=== PATIENT | female | born 1985 | race Hispanic/Latino ===

== ENCOUNTER 2019-12-08 14:00 | Outpatient (AMB) | payer MEDICAID, SELFPAY ==
[2019-12-08 13:50] VITALS: BMI 25.6
[2019-12-08 14:00] VITALS: BMI 25.6
--- NOTE | 2019-12-08 14:00 | CWCCLINC_ITS ---
Review of Systems Review of Systems ROS Unobtainable: All systems reviewed & no additional complaints except as documented Const Constitutional: Reports body aches GI Gastrointestinal: Reports constipation and Reports nausea Genitourinary: Reports pelvic pain Musc Musculoskeletal: Reports arthralgias Skin/Breast Skin/Breast: Reports bleeding lesions and Reports non-healing lesions Exam Const General: cooperative Orientation: alert Psych Mental Status: mental status grossly normal Mood: congruent mood Affect: normal affect Speech and Movement: speech and movement normal Attitude: cooperative Thought Process: normal Thought Content: normal Judgment: judgment good Supplemental Info Assessment & Plan: 1. Malignancy pain. Chronic. Controlled with current regimen of Swanton 5mg with occasional supplementation with MSER 30mg. Significantly improved over the last 2 weeks with completion of XRT to the left knee. Mobility limited due to pathological damage at left knee and fracture at pubis. Patient satisfied with pain regimen at this time. Notified patient that her most recent Rx for Swanton was billed through insurance and to contact [facility] for a refund of approximately $91. Current Swanton use below prescribed level. Encouraged seated exercises as able. Continue current regimen. Re-assess at next encounter. 2. Constipation. Moderately controlled on DSS. Likely opioid induced as well as reduced mobility. Patient has adequate fluid intake. PharmD and RD discussed increase in insoluble and soluble dietary fiber. Continue with DSS 100- 200mg QD. Monitor. 3. Nausea. Improved with reduction in MSER usage. Patient has ondansetron available which is effective. Prochlorperazine also available but historically ineffective. Continue infrequent MSER usage and ondansetron PRN. Monitor. 4. Insomnia. Resolved with discontinuation of Hysingla. Likely JOSEPH. 5. Non-healing wound to chest wall. Acute. Draining bloody exudate. Patient is changing dressings BID and has established with wound care. Defer management to WHD. 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 Ekaterina has previously worked with patient and Dr. Tolbert on pain management, however this is the first Palliative IDT encounter with Ekaterina. The patient states that she is not in as much pain after completing XRT to her knee. She states she just took some pain medication and that it is currently rated a 4-5/10 to her left leg. She states it is at it's worst when sitting down. She describes it as sharp at times, cramping at times and would be constant if she did not take any pain medication. She states she discontinued her Hysingla over a week ago because she was experiencing insomnia which was listed as an JOSEPH. She states her insomnia improved within 2 days of discontinuing the Hysingla and she is now sleeping through the night. She states her current pain regimen is Swanton 2 T AM, 1 T a fternoon PRN and 2 T HS. She states she took 2 Swanton this morning and it is now 2:41 pm and she is not in pain yet. She states she has MSER that she takes when the pain is severe, but that she only takes it about once a week and it gives her significant nausea. She has about 50 MSER remaining. She states she is comfortable with the 5 tablet Swanton regimen and she wishes she didn't have to take any. She states her nausea has improved after significantly reducing her MSER use. She has both prochlorperazine and ondansetron at home, but she states only the ondansetron is effective. She states she has some constipation and she has stool softener from her PCP that she uses daily. She states her norm is not to have a BM QD and she is currently at every 2-3 days and her stool is hard. She varies between 1 and 2 capsules of DSS daily. She states Dr. Peña's office is still working on getting her new chemo authorized and has not started that yet. She states that she has a wound to her chest wall that is draining blood and clear fluid and that she is dressing it twice daily and has an appointment at wound care on the . She states she has a telephone encounter with her PCP tomorrow. Medication and Supplements Medication and Supplements: DSS 100mg 1-2 C QD PRN constipation H/APAP 5/325 1-2 T PO Q6H (typically 2 BID and 1 PRN) MSER 30mg PRN (typically 1 per week) MVI QD Ondansetron 8mg Q8H PRN NV Prochlorperazine 10mg Q8H PRN NV (not effective, not using) *CWC Office Visit complete CWC Offive Visit Complete CWC Visit Complete?: No
--- NOTE | 2019-12-08 16:04 | CWCCLINC_ITS ---
Vital Signs 12/08/19 14:00 Height 1.57 m Height Method Stated Weight 63.503 kg Weight Measurement Method Stated by Patient BMI 25.6 OP Palliative Care Referral source Referral Source: Follow-Up Visit (12/08/19 at 2 pm.) Diagnosis Diagnosis: Breast Cancer and Secondary Bone Caner Changes in weight Weight Loss: Yes Usual Body Weight: 73.482 kg Usual Body weight time frame: 2 month ago (oLla reports noticed weight change in mid September) % change: 14 Weight Change Additional comment: Significant weight change d/t poor carl etite/poor intake with side effects of pain medications including morphine per pt Lola. Nutritional Assessment Total kcal: 1,910 Based on kcal/k Body Weight: Actual BW (140 lbs.) Nutritional Assessment additional comments: Pt Lola Todd attended the interdisciplinary Palliative follow up meeting over the phone on 12/08/19 at 2:00 pm. Current stated weight: 140ish lbs. (at dr. office), usual weight about 2 months ago and in the past year: 162 lbs. Current stated Height: 5?2? Dx/PMH includes: Cancer of breast, Secondary bone cancer. Pt Lola reports her recent significant weight loss of about 20 lbs. was attributed to pain needed to be on morphine, also on other pain meds with lot of side effect of nausea and vomiting started in mid-September. Her appetite and intake has improved now after she does not need much morphine and not having nausea and vomiting. Lola reports has some constipation, needs to be on stool softener on a regular basis. Reviewed with Lola ways to increase fluid and fiber intake. Encourage Lola to drink minimum 8 cups of water per day and adding more fruits and vegetable including prunes which Lola likes for increased fiber intake. Whole grain food choices with increase fiber also encouraged. Lola states she is eating one main meal at lunch and snack throughout the day. She likes fruits and eats lot of them. She also likes vegetables and eats a variety. She usually drinks water and flavored vitamin water up to 5 cups per day together. To Increase fluid intake with minimum 8 cups per day is encouraged. Lola reports not tolerating dairy milk and almond milk, she can eat yogurt and cheese. She is also taking One A Day multivitamins and minerals supplement. Lola has not needed to try ONS (Oral Nutritional Supplement) at this time. Lola is wheelchair bound at this time, not able to walk on her own. She is sitting and moving her feet a bit, not able to do much exercise and scare may cause fracture. Encourage Lola to move leg, arm and head gently as tolerated to maintain physical flexibility. Summary: Lola had significant weight loss of 20 lbs in 2 months and she would like to maintain her current weight which is adequate as it reflect BMI of 25.6. Additional chemo is planned per Dr. Tolbert and Lola is informed with some common side effects that may affect her appetite and weight during cancer treatment. Encourage Lola to contact dietitian when it happens. Lola has improved appetite and eating well at this time. She will increase her fluid intake with water and flavored vitamin water. She will increase her fiber intake with eating more fruits and vegetables and prunes and more whole grain food choices. RD to monitor the medical progress and follow her nutrition and hydration need prn. Proteins Total Grams of Protein: 95 Actutal Proteins: Actual BW Protein Additional Comment: 1.5 gm/kg ABW d/t Cancer Fluid Intake Total Fluid ml/d: 2,227 Total Fluid ml/k Fluid Intake: Actual BW Lab/Medication Nutritionally Related Lab/Medication Nutritionally Related: Labs (11/09/19): BUN 8 L, Cret 0.4 L, Hgb 10.7, Hct 34.3 L Food intake Food intake: Changed (Improving) Current intake: Normal Intake Symptoms Symptoms: Constipation Assistance needed for Type of assistance needed: Meal Prep (Pt Lola reports her daughter is helping) Recommendations Recommendations additional comment: 1. Encourage Lola to contact dietitian when Nausea vomiting or taste change occurs during cancer treatment. 2. Increase fluid intake with water and flavored vitamin water. 3. Increase fiber intake with eating more fruits and vegetables and prunes with more whole grain food choices. Education Education Recipient: Patient Follow-up Visit Follow up visit: Yes *CWC Office Visit complete CWC Offive Visit Complete CWC Visit Complete?: No
--- NOTE | 2019-12-09 13:49 | CWCCLINC_ITS ---
Vital Signs 12/08/19 13:50 12/08/19 14:00 Height 1.57 m 1.57 m Height Method Stated Stated Weight 63.503 kg 63.503 kg Weight Measurement Method Stated by Patient Stated by Patient BMI 25.6 25.6 Oxygen Delivery Method Room Air Comment Patient reports pain 4-5 out of 10; Dr. Tolbert made aware OP Palliative Care List Name, Facility and location of PCP: [facility]af[facility] Gilliam Review of symptoms: Constipated at times, poor energy level, pain How would you rate your diet: Good Do you have any of the following that interfere w/eating: Constipation [facility] Comments: Called at 2:04 pm; Called Dr. Tolbert at 3:10 pm; Conference call ended 3:19 pm Email address: [email or web address] Telephone conference call was done due to no face to face appointments occurring at this time. Patient continues to see Kaitlyn Roberts and has an appointment scheduled for tomorrow (12/09/2019). Patient continues to use [facility] on [address]. No recent blood work was done; last was on 11/09/2019. Patient stated weight is 140 pounds and a stated height of 5?2?. Patient does not use oxygen. Patient rates her pain a 4 to 5 out of 10 to her left leg. Patient continues to report her pain as ?different?; sharp and crampy then if she does not take a pain pill then the pain is constant. Patient reported no changes in her medications. Verbal head to toe assessment was completed with patient over the phone. Patient reports no shortness of breath or cough. Patient reports that she has a wound to the left chest wall. Patient was at wound clinic on 11/30/2019. Patient changes the dressing twice a day due to lots of drainage. Patient reports that drainage is a clear color with some blood also. Patient reports no other skin issue or swelling. Co-Morbitities: Cancer List Name, Facility and location of PCP: Serafin Gilliam Care Conf Coordinator: Laney Devi date/time/location: 12/08/2019 at 2 pm in the [facility] conference room on the conference phone Purpose of meeting: Palliative care follow up appointment/symptom management Participants in meeting and relationship: Lola Todd, Patient YASH Edwards MSW student internet security specialist ALEJANDRO Palmerpard, PharmD Heidi Rodriguez, Dietitian Mirtha, dietitian internet security specialist Dr. Luke Tolbert joined conference call at the end of the discussion with the patient. How are patients wishes known: Patient cognitive/verbal Who is the decision maker for the patient: Patient Issues addressed: Constipated at times, poor energy level, pain Discussion/Outcomes/Follow-up: Patient reported that her appetite is better and has no reports of nausea or vomiting. Patient did state that she has not taken a lot of the morphine pain medicine which causes her a lot of nausea and vomiting. Patient does complain of constipation. Patient?s last bowel movement was 2 days ago (12/06/2019) and was hard. Patient reports taking a stool softener in the morning and then she will have 3 bowel movements then will have no bowel movement for 2 days. Patient states that she sleeps good at night and is able to sleep through the whole night. Patient stated that her energy level is not good. Patient stated that she is not moving a lot because of the pain to her leg. Patient reported that her next wound care clinic appointment is on 12/14/2019. Communication to other healthcare professionals: Made Dr. Tolbert aware of the patient?s issues. Please see YASH Marquez Amy, PharmD, and RAMY Gordon, notes for their recommendations for Dr. Tolbert. Review of symptoms management: Yes Symptom management recommnedations: See discussion Tenative date for F/U Patient family meeting: December 2019 List Name, Facility and location of PCP: Serafin Gilliam *CWC Office Visit complete CWC Offive Visit Complete CWC Visit Complete?: No
--- NOTE | 2019-12-15 09:20 | CWCCLINC_ITS ---
Vital Signs 12/08/19 13:50 12/08/19 14:00 Height 1.57 m 1.57 m Height Method Stated Stated Weight 63.503 kg 63.503 kg Weight Measurement Method Stated by Patient Stated by Patient BMI 25.6 25.6 Oxygen Delivery Method Room Air Comment Patient reports pain 4-5 out of 10; Dr. Tolbert made aware OP Palliative Care List Name, Facility and location of PCP: [place], [place] Prognosis: Fair Who patient wants involved in care decisions: Patient named her , Mainor Todd, as her surrogate medical decision maker. Primary Medical Surrogate Decision Maker?: Yes Existing Advance Directive: No POLST Form: No List Name, Facility and location of PCP: [place], [place] Patient Diagnosis: Breast, Bone Cancer Prognosis: Fair Current goal of care: Life-prolonging Mental Status: Alert and Oriented Coping Status: Coping well Emotional Status: Appropriate Mood Learning needs: Motivational Home situation: Patient lives with her with whom she has been with 16 years and her 2 daughters who are 15 years old and 9 years old. Support System: Good Financial Status: Marginal Care Conf Coordinator: Daisy Devi date/time/location: 12/08/2019 2:00pm [facility] conference room via phone call Patient Diagnosis: Breast, Bone Cancer Purpose of meeting: Palliative Care Follow-Up/Symptoms Management Participants in meeting and relationship: Lola Todd, patient Alma Rueda, FELT HAT POUNCING OPERATOR HAND Yanelis Bunn, Social Work Lapel Padder Laney Cunha, RN Yanelis Mcclure, PharmD Heidi Rodriguez, Dietitian Amy, Dietary Lapel Padder Dr. Luke Tolbert. How are patients wishes known: Patient cognitive/verbal Who is the decision maker for the patient: Patient Issues addressed: Emotional Breakdown 1x per week Financial Hardship Low energy and ambulation Assistance obtaining DME Discussion/Outcomes/Follow-up: This is a 34 year-old female who presented to her Palliative Care follow-up meeting via telephone conference. Involved in the call were Dr. Tolbert, Palliative Care Nurse Laney, Palliative Care French Pastry Cook [place], Pharmacist Yanelis, Intensive Care Unit Registered Nurse Heidi, and Dietary Lapel Padder Mirtha, and Social Work Lapel Padder Yanelis Antoine. Approval from patient was obtained prior to the meeting, to en sure patient was aware of interns being on the call. Patient states she has pain all of the time, and rates her pain at a 4 out of 10 because she had just taken her pain medication. Patient states the pain is in her leg, and describes it as a sharp pain. Patient does not use oxygen, and denies shortness of breath and coughing. Patient does have a wound in her chest. Patient changes dressings on this wound twice a day. Patient follows up at [facility] wound center and her next appointment is on 12/14/2019. Patient?s most recent weight was approximately 140 pounds. Patient states that she eats well. Patient expressed that her appetite improved since she doesn?t take the Morphine as often, she is able to eat better. Patient denies nausea or vomiting. Patient also denies constipation or diarrhea. Patient states that her sleep is good, and that she is able to sleep through the night. Patient expressed that her energy levels are not as good. Patient reported she is not moving a lot due to the fracture in her leg. Patient needs assistance from her daughter and to ambulate because she is unable to walk on her own. Patient reported that her and daughters also assist with ADL?s such as cooking cleaning, dressing, and bathing. Patient uses a wheelchair to get around the house and to use when she attends medical appointments. Patient stated that a walker was delivered by [employer]. FELT HAT POUNCING OPERATOR HAND did a follow-up to [employer] in [place] and faxed them an updated authorization form. FELT HAT POUNCING OPERATOR HAND is still working on assisting patient obtain the shower chair. FELT HAT POUNCING OPERATOR HAND recommended for patient to do small exercises with her arms and legs if she is able to so, to incorporate a little of physical activity. Patient mood was within normal limits. Patient thought process was congruent with thought content. No disturbances to speech patterns. Patient reported she is doing well emotionally. Patient reported that she does have a little breakdown at least once a week, when she isn?t feeling well. Patient explained she just feels like she needs to cry to let it all her feelings out and needs time to herself. Patient reported she just needs 5 minutes then she is better. Patient stated that after crying, she feels better. FELT HAT POUNCING OPERATOR HAND agreed that it?s good to acknowledge those feelings, and to give herself those moments so she can redirect her thoughts and move on with her day. Patient stated that she prays in those moments and it helps her. Patient also has songs on her phone that she listens to that help her relax. FELT HAT POUNCING OPERATOR HAND recommended to use prayer and her relaxation music on those occasions when she may be experiencing pain to help her relax and focus her mind on something else other than the pain. FELT HAT POUNCING OPERATOR HAND suggested using earphones when listening to music to help her focus on the music. FELT HAT POUNCING OPERATOR HAND re commended breathing exercises that the patient can use to help relax as well. FELT HAT POUNCING OPERATOR HAND also suggested going outside more often to get fresh air and to have a change of surroundings. FELT HAT POUNCING OPERATOR HAND explained going outside for a few minutes a day can make a difference in her mood and overall day. Patient?s biggest support is her family and friends. Patient reported she communicates with her friends via phone calls or text since they are not able to go over due to the current health crisis and precautions they are taking. Patient denied having current or past thoughts or plans of harming herself or others. She reported her family does fear she will harm herself because she goes into her room when she is having a breakdown, but she has reassured them that she would not harm herself it is just that she needs a few minutes to be alone and take a break. Patient reported it helps her relax after she has a few moments to herself to cry out how she is feeling at the time being. FELT HAT POUNCING OPERATOR HAND will continue to monitor patient?s mood and provide recommendations. Patient is receiving social security disability benefits, however patient reported she spoke to a correctional counselor/case manager and is waiting to see if she will continue to receive the benefits. Patient reported she usually gets her monthly deposit on the of each month. FELT HAT POUNCING OPERATOR HAND will follow-up with patient to confirm she has received her social security disability benefits. Patient reported her has not been working as often due to him staying home to care for her. FELT HAT POUNCING OPERATOR HAND provided the phone number to [employer] in order for patient?s to call and determine if he is eligible for financial assistance. Transportation is provided by the patient?s . FELT HAT POUNCING OPERATOR HAND reminded patient that she can get mileage reimbursement if needed through her insurance. FELT HAT POUNCING OPERATOR HAND will continue to provide resources to assist with financial stressors. See Laney Cunha RN note for further nursing evaluation and medical concerns. See Yanelis PharmD notes for recommendations on medications and medical concerns. See Keesha Rodriguez, Intensive Care Unit Registered Nurse notes for further recommendations and counseling on nutrition. Tenative date for Yoly/U Patient family meeting: December 2019 Advanced Directive: No POLST Form: No Primary Medical Surrogate Decision Maker?: Yes List Name, Facility and location of PCP: Kaitlyn Sears [place], [place] *CWC Office Visit complete CWC Offive Visit Complete CWC Visit Complete?: Yes
== END 2019-12-08 15:20 | disposition home or self-care (01) ==
LOC: HODCWC 14:12
PROVIDERS: PCP Physician Assistant; Referring Provider Physician Assistant; Visit Provider Physician Assistant
DX: Z51.5 Encounter for palliative care (principal)

== ENCOUNTER 2020-02-03 10:00 | Outpatient (AMB) | payer MEDICAID, SELFPAY ==
[2020-02-03 10:00] VITALS: BMI 23.8
--- NOTE | 2020-02-03 10:00 | CWCCLIPHA ---
Review of Systems Review of Systems ROS Unobtainable: All systems reviewed & no additional complaints except as documented Const Constitutional: Reports lethargy and Reports poor appetite ENT Ears. Nose, Mouth, and Throat: Reports dry mouth GI Gastrointestinal: Reports constipation, Reports nausea and Reports vomiting Genitourinary: Reports other (urine very yellow x 2 weeks) Musc Musculoskeletal: Reports back pain and Reports arthralgias (left hip, knee) Skin/Breast Comments: closed left chest wound Neuro Neurologic: Reports burning sensations Psych Psychiatric: Reports other (sadness) Exam Const General: cooperative Orientation: alert HENMT Mouth: moist mucous membranes abnormal Details: parched Skin General: turgor normal Neuro General: patient alert Cognition: normal cognition Speech: speech normal Psych Mental Status: mental status grossly normal Mood: congruent mood Affect: normal affect Speech and Movement: speech and movement normal Attitude: cooperative Thought Process: normal Thought Content: normal Judgment: judgment good Supplemental Info Assessment and Plan: 1. Nausea and vomiting. Chronic with exacerbation. Likely opioid JOSEPH and advanced malignancy. Dr. Tolbert feels there may be a psychological component. Improved after discontinuation of Xeloda but not controlled on Sancuso +/- prochlorperazine suppositories. No identifiable food triggers. Recommended trial of metoclopramide to improve gastric emptying; oral liquid preferred for faster absorption and OOA. LVM for metoclopramide 10mg/10mL #8oz 10 mL PO TID PRN NV for [facility] with instructions not to take with prochlorperazine. Continue Sancuso. Monitor. Consider lorazepam 0.5mg SL PRN if patient does not improve. 2. Constipation. Chronic with exacerbation. Likely opioid and Sancuso JOSEPH plus poor oral intake. Patient has not had a BM in 3 weeks. DSS not helping. Anticipate improvement with metoclopramide as above and improvement of oral intake. Monitor. Consider bisacodyl when oral intake is improved. 3. Dehydration. Acute, moderate with normal skin turgor, darkened urine and dry oral mucosa. Encouraged sips of water, or electrolyte beverages. Sancuso and metoclopramide as above. K 3.4 on 01/19/20 which is not far off baseline. Monitor. 4. Chronic pain. Controlled, secondary to malignancy. Sufficient efficacy and DOA of Fentanyl 50mcg, [id number], IBU ATC and Carrier PRN BTP. Given patient is not on treatment currently, de-escalation unlikely. Continue current management. Monitor. Clinical Pharmacist Assessment Consultation Type Referral Source: Follow-Up Visit Program Patient eligibility programs: 2.7 Palliative Care Health Conditions Health Conditions: Breast CA metastatic to bone Relevant Labs Relevant Labs: 01/19/20 K 3.4 IDT Present IDT Present: MD Laney Cole RN YASH Dewitt Patients stated concerns Patient's stated concerns: Persistant NV Subjective notes Subjective Narrative: Lola is a 34 YO F on a teleconference today for routine Palliative Care follow-up. She reports that she discontinued Xeloda on Friday (January 31) due to intolerable vomiting and other JOSEPH. She states she was concomitantly wearing a Sancuso patch as ordered by Dr. Peña but she did not feel any relief from it. She states that her vomiting has improved since discontinuing Xeloda but that she still has NV and is vomiting everything she eats, including water. She endorses NV even on an empty stomach. She states that when on Xeloda, she would at times vomit pills or pill fragments. She states she tried the Compazine suppositories in combination with Sancuso but did not notice a difference. She is still wearing the Sancuso patch. She states her mouth feels dry all the time. She states she is urinating and her urine is very yellow and has been that way for about 2 weeks. She is unable to quantify how much fluid she is able to keep down. She states she has not had a bowel movement in 3 weeks. She states her left chest wound has closed and is very happy about that. She states she is still under the care of [facility]. She states her pain is improved and rates it 3-4/10 when she's not moving around. She states the pain is in her left hip, knee and back and describes it as constant and burning, but has a difficult time with descriptions. She states when the pain is worse she feels sharpness and pressure. She states the Fentanyl is effective even on the 3rd day to the point sometimes she forgets to change it until the 4th day. She states she noticed some more pain when she started the [id number] (vs. 2x60mg) but after a while she got used to it. She is using IBU at the same time as [id number] and she finds that that produces a longer DOA. She states she uses 1 Carrier in anticipation of moving around, but has used about 3 Carrier in the past week. Medication and Supplements Medication and Supplements: DSS 100mg 1-2 C QD PRN constipation Fentanyl 50mcg patch Q3D H/APAP 10/325 1 T PRN (<1 per day) IBU 400mg Q12H MSER 100mg Q12H MVI QD Ondansetron 8mg Q8H PRN NV Prochlorperazine 10mg Q8H PRN NV (not effective, not using) Prochlorperazine 25mg Supp NC PRN NV Sancuso 1 patch Q7D *CWC Office Visit complete CWC Offive Visit Complete CWC Visit Complete?: No
--- NOTE | 2020-02-04 10:51 | CWCCLINC_ITS ---
Vital Signs 02/03/20 10:00 Height 1.57 m Height Method Stated Weight 58.967 kg Weight Measurement Method Stated by Patient BMI 23.8 Oxygen Delivery Method Room Air Comment Patient states pain is 3-4/10; Dr. Tolbert made aware. OP Palliative Care List Name, Facility and location of PCP: Serafin Gilliam Review of symptoms: Nausea, poor appetite, constipated, poor energy level How would you rate your diet: Poor Do you have any of the following that interfere w/eating: Constipation, Nausea and Vomiting [facility] Comments: Called at 10:01 am; Called Dr. Tolbert at 10:32 am; Conference call ended 10:40 am Email address: [email or web address] Telephone conference call was done due to no face to face appointments occurring at this time. Patient continues to see Kaitlyn Roberts and the last appointment was on (02/01/2020). Patient continues to use [facility] on [address]. Last blood work was done 2 weeks ago. Patient stated that she is unsure of her weight is in the 130?s and she is 5?2?. Patient does not use oxygen. Patient rates her pain 3 to 4 out of 10 to her left leg and her back, stated that it is not bad right now. Patient reported her pain as ?different?; sharp and burning with pressure at times. Patient stated that it is an ?everyday thing?. Patient reported that there was a patch that was prescribed for her by Dr. Peña. Patient also stated that she had to stop the Xeloda and that it was too strong and gave her too much nausea. Patient reported that she had stopped taking that medication on Friday. Verbal head to toe assessment was completed with patient over the phone. Patient reports no shortness of breath or cough. Patient continues to have a wound to her left chest but stated that it was closed. Patient stated that her next appointment for the wound clinic is on 02/11/2020. Patient reports no other skin issue or swelling. List Name, Facility and location of PCP: Serafin Gilliam Patient Diagnosis: Left breast cancer mets to bone Care Conf Coordinator: Laney Devi date/time/location: 02/03/2020 at 10 am in the [facility] conference room on the conference phone Patient Diagnosis: Left breast cancer mets to bone Purpose of meeting: Palliative care follow up appointment/symptom management Participants in meeting and relationship: Lola Todd, Patient YASH Enriquez, RN Yanelis Mcclure, PharmD Dr. Luke Tolbert joined conference call at the end of the discussion with the patient. How are patients wishes known: Patient cognitive/verbal Who is the decision maker for the patient: Patient Issues addressed: Nausea, poor appetite, constipated, poor energy level Discussion/Outcomes/Follow-up: Dietitian is currently not on the phone call with the patient so will have the dietitian call the patient to follow up. Patient stated that her appetite is not good and is really bad. Patient reported having nausea every time that she eats. She states that she tries to eat things that are liquid and fruits. Patient reported that even water makes her vomiting. Patient states that she has not had a bowel movement for 3 weeks now. Patient does deal with constipation and she uses a laxative but there ?is nothing coming out?. Patient believes that it is because she has not really eaten much of anything to have a bowel movement. Patient reported that her sleep has been good and has been sleeping through the whole night. Patient reported that her energy level now is not so bad but that she does not have any strength. Communication to other healthcare professionals: Made Dr. Tolbert aware of the patient?s issues. Please see YASH Sepulveda, and Yanelis, PharmD, notes for their recommendations for Dr. Tolbert. Review of symptoms management: Yes Symptom management recommnedations: See discussion Chart updated to reflect care plan: Yes Tenative date for F/U Patient family meeting: February 2020 List Name, Facility and location of PCP: Serafin Gilliam *CWC Office Visit complete CWC Offive Visit Complete CWC Visit Complete?: No
--- NOTE | 2020-02-09 11:36 | PR.OPPALCARP ---
Vital Signs 02/03/20 10:00 Height 1.57 m Height Method Stated Weight 58.967 kg Weight Measurement Method Stated by Patient BMI 23.8 Oxygen Delivery Method Room Air Comment Patient states pain is 3-4/10; Dr. Tolbert made aware. OP Palliative Care List Name, Facility and location of PCP: [facility]: Kaitlyn Villalba PA-C [address] [place] [address]. [place] [address] Patient would like more on Advance Directive: No Prognosis: Fair Advanced Care plan discussed: Yes Who patient wants involved in care decisions: Patient mention that in the event that she is impaired or unresponsive to make medical decisions for herself, she has named her , Mainor Todd, as her primary medical decision maker Primary Medical Surrogate Decision Maker?: Yes Existing Advance Directive: No POLST Form: No Primary Caregiver: Mainor Todd List Name, Facility and location of PCP: [facility]: Kaitlyn Villalba PA-C [address] [place] [address]. [place] [address] Patient Diagnosis: Breast, Bone Cancer Prognosis: Fair Current goal of care: Life-prolonging Mental Status: Alert and Oriented Coping Status: Coping w/some difficulty Emotional Status: Ordinary Learning needs: Motivational Home situation: Patient continues to reside with her , Mainor, and two young daughters: 15 and 9 year old. Support System: Good Financial Status: Marginal Care Conf Coordinator: Coco Devi date/time/location: On 02/03/2020, Palliative Care meeting took place in [facility] conference room at 10:00 a.m. Patient Diagnosis: Breast, Bone Cancer Purpose of meeting: Palliative Care Follow Up/Symptoms Management Participants in meeting and relationship: Lola Todd, patient ALEJANDRO Palmer, Pharmacist YASH Dewitt Dr., Oncologist How are patients wishes known: Patient cognitive/verbal Who is the decision maker for the patient: Patient Issues addressed: Pain Management Nausea Vomiting Constipation ADVDIR DME Wound Care Discussion/Outcomes/Follow-up: This is 34 year-old , female, who presented to his Palliative Care follow up meeting via telephone conference. Involved in the conversation was patient, Oncologist, Dr. Tolbert; Palliative Care Registered Nurse, Laney; PharmacistYanelis; and covering Ware Carrier, Coco. Laney introduced Coco to patient due to Palliative Care Licensed Clinical Ware Carrier, Alma, is out on medical leave. Patient was agreeable to speak to new psychiatric social worker supervisor. Patient was awake, alert and oriented x3 during call. Patient?s mood was within normal. Her thought process was congruent with mood, cognition, and judgment. Patient?s attitude was pleasant and cooperative through phone call. Patient is [place] speaking. She was able to effectively communicate and advocate for herself. Patient reports that her coping mechanisms include praying and talking to her friends and family. Patient reports that she only has one mental breakdown per week, but it is not too bad. Patient is aware that when she feels mentally overwhelmed, she needs to be alone in her room until she feels calmer. She denies any suicidal/homicidal ideation. Patient denies any hallucinations. Patient denies any use of drugs, alcohol or nicotine. [facility] Per patient, her wound to her left side of her chest has officially closed and healed. Patient is still following on Fridays for follow ups and dress changes. Patient continues to follow up at the [facility] for her chemotherapy, which is managed by Dr. Peña. Per patient, she is not taking any chemotherapy medications. Per patient, she attempted to take Xeloda, but it caused her too much nausea and vomiting. She was attempting to do chemotherapy patches, but they were not strong enough. Patient was informed by Dr. Peña that the only medication that could work for her is Xeloda. Patient attempted to use Sancuso patches to decrease vomiting and nausea, but was unsuccessful. Pharmacist, Yanelis will speak to Dr. Tolbert regarding other medications to decrease her nausea and vomiting. Patient reports that her weight is 130 pounds due her appetite being awful. Patient reports that as soon as she eats, she feels nauseated and begins vomiting. RD will speak to patient in order to provide recommendations. Patient admits to being constipated and not having a bowel movement for three weeks. However, patient is under the impression that she is not having a bowel movement due to not having enough food to create feces. Patient reports that her sleep is not bad. Patient did admit to having no strength. Patient is not able to ambulate without walker or assistance from family. Patient denies using oxygen. Patient reports that she is not able to independently do or complete any of her daily activities. Patient is still awaiting for shower chair to be delivered. Patient does complain of having a pain at a level 3-4 with medications, which is not bad for her. Patient?s pain continues to be sharp with a burning sensation. Patient continues to report that she is combining Ibuprofen and Morphine. Patient reports that she has decreased using her [place] medication due to other pain medications working well and having longer lasting effects. Patient reports that she only uses 3 [place] per week, if anything. Patient continues to reside with , Mainor, and two young daughters: 15 and 9 years old. Patient reports that she is currently unemployed and deemed disabled. She is receiving disability payments through the [facility], and food stamps. Patient is currently awaiting to apply for disability through Social Security. Patient reports that her support system is formed by her friends, siblings, parents, , and daughters. Patient has continuous communication with friends through text and calls. Patient still seeing her parents about one time per week. Patient reports that she relies in her gnosticist, which is Catholicism. Patient has been attending buddhism services through [employer]. Patient denies needing transportation resources due to feeling like the appointments are not too far. Ware Carrier introduced patient to the idea of completing an Advanced Directive and POLST. Patient is not interested at this time. However, she did mention that in the event that patient is impaired or unresponsive to make medical decisions for herself, she has named her , Mainor Todd, as her primary medical decision maker. It was noted to patient that if she wants to complete the ADVDIR at any time, social contact worker is willing to assist. For more information regarding RN notes, please see Laney?s note; if in need of information regarding medication management, please see Yanelis?s note. Tenative date for F/U Patient family meeting: February of 2020 Advanced Directive: No POLST Form: No Primary Medical Surrogate Decision Maker?: Yes List Name, Facility and location of PCP: [facility]: Kaitlyn Villalba PA-C [address] [place] [address]. [place] [address] *CWC Office Visit complete CWC Offive Visit Complete CWC Visit Complete?: Yes
== END 2020-02-03 10:40 | disposition home or self-care (01) ==
LOC: HODCWC 10:58
PROVIDERS: PCP Radiology Therapeutic Radiology; Referring Provider Radiology Therapeutic Radiology; Visit Provider Radiology Therapeutic Radiology
DX: Z51.5 Encounter for palliative care (principal)